=== PATIENT | female | born 1980 | race Caucasian/White ===

== ENCOUNTER 2019-05-04 14:00 | Emergency (ER) | payer SELFPAY ==
--- OUTSIDE RECORDS SUMMARY | 2019-05-04 14:32 | XMS REPORT | Continuity of Care Document ---
:1980 External Reference #:[id number] Author Name Zainab Belcher, [place] Address [address] [place] [id number] Care Team Providers Name Role Phone [facility] Care [facility] Information Office Professionals Problems Description No Information Available Social History Type Date Description Comments Sex Female Tobacco Use Start: Unknown End: Former Cigar Smoker, Smoked an Unknown Occasional Cigar Tobacco Use Reviewed: 05/03/19 Never Smoked A Pipe Smoking Status Reviewed: 05/03/19 Never Smoked A Pipe Tobacco Use Reviewed: 05/03/19 Never Used Smokeless Tobacco ETOH Use Occasionally consumes alcohol Tobacco Use Start: Unknown End: Patient is a former smoker Unknown Recreational Drug Use Formerly used Marijuana sporadically Recreational Drug Use Teaching provided regarding Naloxone/Narcan Training Available At [facility] Tattoo/Piercing Tattoo Tattoo/Piercing Pierced nasal area Tattoo/Piercing 05/03/2019 Tattoos professionally done Tattoo/Piercing 05/03/2019 Piercings professionally done Allergies, Adverse Reactions, Alerts Description No Known Drug Allergies Medications Active Medications SIG Qnty Indications Ordering Provider Date Trazodone HCL Unknown Immunizations Description No Information Available Vital Signs Date Vital Result Comment 05/03/2019 11:33am Body Temperature 98.1 F BP Systolic 132 mmHg electronic BP Diastolic 84 mmHg electronic BP Systolic Recheck 122 mmHg manual BP Diastolic Recheck 80 mmHg manual Height 64 inches 5'4" Weight 161.00 lb BMI (Body Mass Index) 27.6 kg/m2 03/19/2016 11:25am BP Systolic 148 mmHg BP Diastolic 84 mmHg Height 64 inches 5'4" Weight 154.00 lb BMI (Body Mass Index) 26.4 kg/m2 Results Test Acquired Date Facility Test Result H/L Range Note Laboratory test 05/03/2019 [facility] HIV Rapid... non reactive finding Procedures Description No Information Available Medical Devices Description No Information Available Encounters Description No Information Available Assessments Date Code Description Provider 05/03/2019 Z11.4 Encounter for screening for human Zainab Belcher NP immunodeficiency virus 05/03/2019 Z11.3 Encounter for screening for infections with a Zainab Belcher NP predominantly sexual mode of transmission Plan of Treatment 05/03/2019 - Zainab Belcher NPZ11.4 Encounter for screening for human immunodeficiency [id number] Encounter for screening for infections with a predominantly sexual mode of transmissionNew Labs:GC/Chlamydia Amplified Rna, Ordered: 05/03/19Fta-Abs, Ordered: 05/03/19Wet Prep...., Ordered: Comments:Reviewed STD risks and prevention with patient. Patient states understanding. Condoms given to patient. Functional Status Description No Information Available Mental Status Description No Information Available Referrals Description No Information Available
--- OUTSIDE RECORDS SUMMARY | 2019-05-04 14:32 | XMS REPORT | Continuity of Care Document ---
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 Wet Prep.... 05/03/2019 [facility] WBC Smear neg Clue Cells Vag Fluid Wet Prep neg Lin Wet Prep neg Lactobacillus Wet Prep few Whiff Wet Prep neg Bacteria Wet Prep n/a PH Wet Prep 6 Misc Other Test no trich seen Procedures Description No Information Available Medical Devices Description No Information Available Encounters Description No Information Available Assessments Date Code Description Provider 05/03/2019 Z11.3 Encounter for screening for infections with a Zainab Belcher NP predominantly sexual mode of transmission 05/03/2019 Z11.4 Encounter for screening for human Zainab Belcher NP immunodeficiency virus Plan of Treatment 05/03/2019 - Zainab Belcher NPZ11.3 Encounter for screening for infections with a predominantly sexual mode of transmissionComments:Reviewed STD risks and prevention with patient. Patient states understanding.Follow up:prnZ11.4 Encounter for screening for human immunodeficiency virus Functional Status Description No Information Available Mental Status Description No Information Available Referrals Description No Information Available
--- OUTSIDE RECORDS SUMMARY | 2019-05-04 14:32 | XMS REPORT | Continuity of Care Document ---
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 Wet Prep.... 05/03/2019 [facility] WBC Smear neg Clue Cells Vag Fluid [...] for human Zainab Belcher NP immunodeficiency virus [HIV] Plan of Treatment 05/03/2019 - Zainab Belcher NPZ11.3 Encounter for screening for infections with a predominantly sexual mode of transmissionComments:Reviewed STD risks and prevention with patient. Patient states understanding.Follow up:prnZ11.4 Encounter for screening for human immunodeficiency virus [HIV] Functional Status Description No Information Available Mental Status Description No Information Available Referrals Description No Information Available
[2019-05-04 14:39] VITALS: BP 128/81
--- NOTE | 2019-05-04 14:48 | UC ---
Knee Pain HPI - HPI Summary HPI Summary: 38-year-old female who was running last evening when she twisted her right ankle and fell onto her left knee. She has had significant swelling to the ankle and continued pain even though she has been icing and elevating. - History of Current Complaint Chief Complaint: UCLowerExtremity Stated Complaint: SP FALL-LT KNEE/RT ANKLE PAIN Time Seen by Provider: 05/04/19 14:38 Hx Obtained From: Patient Hx Last Menstrual Period: currently ?: No Onset/Duration: Sudden Onset, Still Present, Other - Happened last evening when she was running. Severity Initially: Moderate Severity Currently: Moderate Pain Intensity: 8 Character: Dull, Aching Aggravating Factor(s): Movement, Weight Bearing Alleviating Factor(s): Rest Associated Signs And Symptoms: Positive: Swelling Able to Bear Weight: Yes - Allergies/Home Medications Allergies/Adverse Reactions: Allergies Allergy/AdvReac Type Severity Reaction Status Date / Time Penicillins AdvReac Stomach Verified 05/04/19 14:40 Cramps Home Medications: Home Medications traZODone TAB* [Desyrel TAB*] 50 mg PO BEDTIME 05/04/19 [History Confirmed 05/03] PMH/Surg Hx/FS Hx/Imm Hx Previously Healthy: Yes Psychological History: Depression - Surgical History Surgical History: Yes Surgery Procedure, Year, and Place: gastric by-pass 2010. esure procedure - Family History Known Family History: Positive: None - Social History Alcohol Use: Weekly Substance Use Type: None Smoking Status (MU): Never Smoked Tobacco Review of Systems All Other Systems Reviewed And Are Negative: Yes Musculoskeletal: Positive: Other: - Pain and swelling to right lateral ankle and pain and an abrasion left knee. Is Patient Immunocompromised?: No Physical Exam Triage Information Reviewed: Yes Appearance: Well-Appearing, No Pain Distress, Well-Nourished Vital Signs: Initial Vital Signs Temp 99.6 F 05/04/19 14:34 Pulse 85 05/04/19 14:34 Resp 16 05/04/19 14:34 BP 128/81 05/04/19 14:34 Pulse Ox 99 05/04/19 14:34 Vital Signs Reviewed: Yes Musculoskeletal: Positive: Strength Intact, ROM Intact, Other: - Significant swelling right lateral ankle with tenderness on palpation. Achilles is intact. Good peripheral pulses, neuro sensation and capillary refill. Left knee is tender on palpation and mild pain with testing for ligament stability however they do feel stable. Superficial abrasion to the anterior portion of her left knee. Good peripheral pulses, neuro sensation and capillary refill. Full range of motion. Neurological Exam: Normal Psychological Exam: Normal Skin: Positive: Other - See above notes. Knee Pain Course/Dx - Course Course Of Treatment: Right ankle x-ray:FINDINGS: BONE DENSITY: Normal. BONES: There is no displaced fracture. JOINTS: There is no arthropathy. ALIGNMENT: There is no dislocation. SOFT TISSUES: There is circumferential soft tissue swelling. OTHER FINDINGS: None. IMPRESSION: SOFT TISSUE SWELLING. NO ACUTE OSSEOUS INJURY. IF SYMPTOMS PERSIST, RECOMMEND REPEAT IMAGING. Left knee x-ray:FINDINGS: BONE DENSITY: Normal. BONES: There is no displaced fracture. JOINTS: There is no arthropathy. There is a moderate suprapatellar joint effusion without lipohemarthrosis. ALIGNMENT: There is no dislocation. SOFT TISSUES: Unremarkable. OTHER FINDINGS: None. IMPRESSION: JOINT EFFUSION. NO ACUTE OSSEOUS INJURY. IF SYMPTOMS PERSIST, RECOMMEND REPEAT IMAGING. She is comfortable here. A knee immobilizer was placed in her left knee and an Yuri bandage on her right ankle. - Differential Dx/Diagnosis Provider Diagnosis: Ankle sprain, Abrasion, knee, Knee sprain Discharge ED - Sign-Out/Discharge Documenting (check all that apply): Patient Departure All imaging exams completed and their final reports reviewed: Yes - Discharge Plan Condition: Fair Disposition: HOME Patient Education Materials: Knee Sprain (DC), Ankle Sprain (ED) Referrals: Jessica Tobar MD [Primary Care Provider] - Jorge Alberto Choudhary MD [Medical Doctor] - Additional Instructions: Ice and elevate intermittently your ankle and knee. Wear the knee immobilizer for comfort over the next 2 or 3 days however when you take it off if it feels like your knee is going to give out then you're to follow-up with the orthopedist and keep the knee immobilizer in place until seen by the orthopedist. You may take Tylenol or Motrin for pain. - Billing Disposition and Condition Condition: FAIR Disposition: Home
== END 2019-05-04 16:16 | disposition home or self-care (01) ==
LOC: UCCORT 14:00
DX: S93.401A Sprain of unspecified ligament of right ankle, initial encounter (principal); S80.212A Abrasion, left knee, initial encounter; S83.92XA Sprain of unspecified site of left knee, initial encounter; F32.9 Major depressive disorder, single episode, unspecified; X50.0XXA Overexertion from strenuous movement or load, initial encounter; Y93.02 Activity, running; Y92.9 Unspecified place or not applicable; Z88.0 Allergy status to penicillin; Z79.899 Other long term (current) drug therapy
CPT/HCPCS: 99213; G0463